=== PATIENT | female | born 1980 | race Caucasian/White ===

== ENCOUNTER 2018-08-30 18:17 | Emergency (ER) | payer OTHER ==
[2018-08-30] MEDS ORDERED: DIPHTH,PERTUSS(ACELL),TET 0.5 ML DISP.SYRIN IM ONE ×2 (18:23→19:00)
--- NOTE | 2018-08-30 18:23 | PDOC ---
Rapid Medical Evaluation Time Seen by Provider: 08/30/18 18:22 Medical Evaluation: 08/30/18 18:22 I have performed a brief in-person evaluation of this patient. The patient presents with a chief complaint of: laceration to right middle finger- Dr. Cope to see Pertinent physical exam findings: laceration to right middle finger I have ordered the following: Td The patient will proceed to the ED for further evaluation. 08/30/18 18:23 Discharge Disposition - Diagnosis Laceration - Referrals - Patient Instructions - Post Discharge Activity
[2018-08-30 18:25] VITALS: BP 119/88; PULSE 71; TEMP 98.1; BMI 21.8
--- NOTE | 2018-08-30 18:49 | PDOC ---
History of Present Illness - General Chief Complaint: Injury Stated Complaint: injury Time Seen by Provider: 08/30/18 18:22 History Source: Patient Exam Limitations: No Limitations - History of Present Illness Initial Comments: 08/30/18 18:43 Patient presents with injury to right finger by knife today. Patient is comfortable with no numbness or tingling. Will be seen by Dr. Cope 08/30/18 18:47 Severity: Yes: mild Location: reports: extremities Respiratory Risk Factors: reports: no cause identified Associated Symptoms: denies: fever, nasal congestion Past History - Travel Traveled outside of the country in the last 30 days: Yes Close contact w/someone who was outside of country & ill: No - Past Medical History Allergies/Adverse Reactions: Allergies Allergy/AdvReac Type Severity Reaction Status Date / Time No Known Allergies Allergy Verified 08/30/18 18:25 COPD: No - Suicide/Smoking/Psychosocial Hx Smoking History: Never smoked Information on smoking cessation initiated: No Hx Alcohol Use: No Drug/Substance Use Hx: No Review of Systems - Review of Systems Able to Perform ROS?: Yes Is the patient limited Tunisian proficient: No Constitutional: No: Chills HEENTM: No: Double Vision, Throat Pain Respiratory: No: Orthopnea, Shortness of Breath, Wheezing, Productive cough Cardiac (ROS): No: Chest Pain, Edema, Lightheadedness, Palpitations Musculoskeletal: No: Back Pain, Gout, Muscle Weakness Integumentary: No: Bruising, Erythema, Flushing Neurological: No: Numbness, Paresthesia *Physical Exam - Vital Signs Last Vital Signs Temp Pulse Resp BP Pulse Ox 98.1 F 71 18 119/88 100 08/30/18 18:22 08/30/18 18:22 08/30/18 18:22 08/30/18 18:22 08/30/18 18:22 - Physical Exam General Appearance: Yes: Nourished. No: Apparent Distress HEENT: positive: TMs Normal, Pharynx Normal Neck: positive: Supple. negative: Carotid bruit, Lymphadenopathy (R), Lymphadenopathy (L) Respiratory/Chest: positive: Lungs Clear, Normal Breath Sounds Cardiovascular: positive: Regular Rhythm, Regular Rate Integumentary: positive: Other (4th digit with superficial laceration) Neurologic: positive: Fully Oriented, Alert Medical Decision Making - Medical Decision Making 08/30/18 18:48 38 year old female with laceration on finger Plan Dr. Cope consult *DC/Admit/Observation/Transfer Diagnosis at time of Disposition: Laceration - Discharge Dispostion Disposition: HOME Condition at time of disposition: Good Decision to Admit order: No - Referrals Referrals: Chandrakant Cope MD [Staff Physician] - (follow up for suture removal ) - Patient Instructions Printed Discharge Instructions: DI for Suture Removal - Post Discharge Activity Forms/Work/School Notes: Back to Work
== END 2018-08-30 19:10 | disposition home or self-care (01) ==
LOC: JERFT 18:17
PROC: 0HQFXZZ Repair Right Hand Skin, External Approach (ICD-10-PCS; principal; 2018-08-30)
DX: S61.212A Laceration without foreign body of right middle finger without damage to nail, initial encounter (principal); W26.0XXA Contact with knife, initial encounter; Y93.9 Activity, unspecified; Y92.9 Unspecified place or not applicable
CPT/HCPCS: 90715; 99281-25